=== PATIENT | male | born 1990 | race African-American/Black ===

== ENCOUNTER 2018-01-27 13:24 | Emergency (ER) | payer SELFPAY ==
[2018-01-27] MEDS ORDERED: Ondansetron HCl/PF 4 MG/2 ML Vial ONE (14:07)
[2018-01-27 14:38] LABS: #Lymphocytes 0.9 thou/uL (1.20-3.40); #Monocytes 0.3 thou/uL (0.11-0.59); #Neutrophils 5.6 thou/uL (1.40-6.50); %Basophils 0.6 % (0.0-1.0); %Monocytes 3.6 % (0.0-10.0); %Neutrophils 82.8 % (42.0-75.0); Hemoglobin 14.1 g/dL (14.0-18.0); Mean Corpuscular Hemoglobin 26.9 pg (27.0-31.0); Mean Corpuscular Volume 81.4 fL (78.0-98.0); Mean Platelet Volume 7.9 fL (7.4-10.4); Platelet Count 185 thou/uL (130-400); RBC Distribution Width 11.8 % (11.5-14.5); Red Blood Cell (RBC) Count 5.24 mill/uL (4.70-6.10); White Blood Cell (WBC) Count 6.8 thou/uL (4.8-10.8)
[2018-01-27 14:48] LABS: ALT (SGPT) 19 U/L (8-55); AST (SGOT) 26 U/L (5-34); Alkaline Phosphatase 65 U/L (40-150); Anion Gap 10 mmol/L (10-20); BUN (Urea Nitrogen) 9 mg/dL (8.9-20.6); Bilirubin, Total 0.7 mg/dL (0.2-1.2); Calc. Creatinine Clearance 0 mL/min (70-130); Calcium 8.5 mg/dL (7.8-10.44); Carbon Dioxide 27 mmol/L (22-29); Chloride 108 mmol/L (98-107); Estimated GFR-MDRD Greater than 90; Globulin 3.1 g/dL (2.4-3.5); Glucose 98 mg/dL (70-105); Lipase 35 U/L (8-78); Potassium 3.9 mmol/L (3.5-5.1); Protein, Total 7.1 g/dL (6.0-8.3); Sodium 141 mmol/L (136-145)
[2018-01-27 15:10] LABS: Bilirubin Negative (Negative); Blood, Urine Negative (Negative); Clarity Cloudy (Clear); Glucose, Urine (Dipstick) Negative (Negative); Leukocyte Negative (Negative); Nitrite Negative (Negative); Protein, Urine (Dipstick) 30 mg/dL (Neg-Trace); Specific Gravity, Urine 1.015 (1.005-1.030); Urobilinogen 0.2 mg/dL (0.2-1.0); pH, Urine 8.5 (5.0-9.0)
[2018-01-27 15:15] LABS: Crystals/HPF 4+ AMORPH PHOS HPF (Negative); RBC/HPF 0-3 HPF (0-3); Squamous Epithelial 0-3 HPF (0-3); WBC/HPF 0-3 HPF (0-3)
== END 2018-01-27 16:19 | disposition home or self-care (01) ==
LOC: SCSER 13:24
DX: R11.2 Nausea with vomiting, unspecified (principal)
CPT/HCPCS: 80053; 81003; 81015; 83690; 85025; 96361; 96374; J2405

== ENCOUNTER 2018-04-07 15:34 | Emergency (ER) | payer SELFPAY | END 2018-04-07 15:42 | LOC: ERS 15:34 | DX: Z02.89 Encounter for other administrative examinations (principal) | CPT/HCPCS: 99283 ==

== ENCOUNTER 2019-02-17 10:35 | Emergency (ER) | payer SELFPAY ==
[2019-02-17] MEDS ORDERED: Acetaminophen 500 MG TAB ONE (11:07)
--- NOTE | 2019-02-17 11:56 | RAD ---
EXAM: XR Thoracic Spine 3 V STANDARD PROVIDED CLINICAL HISTORY: Pain status post injury COMPARISON: 10/19/2003 FINDINGS: Thoracic alignment appears normal. Vertebral body heights appear preserved. Pedicles appear intact. IMPRESSION: No radiographic evidence for an acute osseous abnormality.
--- NOTE | 2019-02-17 11:57 | RAD ---
EXAM: XR Cerv Sp Ap Lat STANDARD PROVIDED CLINICAL HISTORY: Pain status post injury COMPARISON: 10/19/2003 FINDINGS: The odontoid is not well visualized. Given this limitation, there is no evidence for fracture. Cervic al alignment appears normal. Vertebral body heights appear preserved. No prevertebral soft tissue swelling apparent. Visualized lung apices appear clear. IMPRESSION: No evidence for fracture or traumatic subluxation with limitations as described.
== END 2019-02-17 12:10 | disposition home or self-care (01) ==
LOC: SCSER 10:35
DX: M54.2 Cervicalgia (principal); F17.210 Nicotine dependence, cigarettes, uncomplicated; V89.2XXA Person injured in unspecified motor-vehicle accident, traffic, initial encounter
CPT/HCPCS: 72040; 72072

== ENCOUNTER 2019-03-07 16:22 | Emergency (ER) | payer SELFPAY ==
--- NOTE | 2019-03-07 17:17 | ULT ---
US Testicular W Doppler History: Testicular pain Comparison: None. Findings: Real-time grayscale, color, and spectral analysis of the testicles was performed. Blood flow is adequate to both testicles. No hydrocele. No mass. Mild increased flow and edema of the right epididymal body. Impression: Findings suggestive of right epididymitis.
[2019-03-07] MEDS ORDERED: Lidocaine 1% MPF 2 ML VIAL ONE (17:56)
[2019-03-07] MEDS ORDERED: Azithromycin 250 MG TAB ONE (17:56)
[2019-03-07] MEDS ORDERED: cefTRIAXone\\ROCEPHIN 250 MG VIAL ONE (17:56)
[2019-03-07 18:01] LABS: Bilirubin Negative (Negative); Blood, Urine Small (Negative); Clarity Hazy (Clear); Glucose, Urine (Dipstick) Negative (Negative); Leukocyte Trace (Negative); Nitrite Negative (Negative); Protein, Urine (Dipstick) Negative (Neg-Trace); Urobilinogen 0.2 mg/dL (Less than 2)
[2019-03-07 18:07] LABS: Bacteria/HPF Rare-Few HPF (None Seen); Squamous Epithelial None Seen HPF (0-3); WBC/HPF 0-3 HPF (0-3)
[2019-03-08 22:53] LABS: Chlam.trachomatis by PCR,Urine Not Detected (NotDetected)
== END 2019-03-07 18:47 | disposition home or self-care (01) ==
LOC: SCSER 16:22
DX: N45.1 Epididymitis (principal); F17.210 Nicotine dependence, cigarettes, uncomplicated
CPT/HCPCS: 76870; 81003; 81015; 87491; 87591; 93976; 96372; J0696; J2001

== ENCOUNTER 2022-08-31 14:16 | Inpatient (IN) | payer OTHER, SELFPAY ==
[2022-08-31] MEDS ORDERED: fentaNYL 50 mcg/mL 1 mL Vial ONE (14:24)
[2022-08-31] MEDS ORDERED: Tranexamic Acid 1,000 MG/10 ML VIAL ONE (14:26)
[2022-08-31] MEDS ORDERED: Ketorolac Tromethamine 30 MG/ML VIAL ONE (14:38)
[2022-08-31 14:42] LABS: #Basophils 0.1 thou/uL (0.0-0.2); #Eosinphils 0.1 thou/uL (0.0-0.7); #Lymphocytes 2.9 thou/uL (1.20-3.40); #Monocytes 0.6 thou/uL (0.11-0.59); #Neutrophils 4.6 thou/uL (1.40-6.50); %Basophils 1.8 % (0.0-1.0); %Eosinophils 0.7 % (0.0-10.0); %Lymphocytes 34.6 % (21.0-51.0); %Monocytes 7.1 % (0.0-10.0); %Neutrophils 55.9 % (42.0-75.0); Mean Corpuscular HGB CONC 33.5 g/dL (32.0-36.0); Mean Corpuscular Hemoglobin 29.3 pg (27.0-31.0); Mean Corpuscular Volume 87.7 fl (78.0-98.0); Mean Platelet Volume 7.2 fL (7.4-10.4); Platelet Count 227 10x3/uL (130-400); RBC Distribution Width 12.2 % (11.5-14.5); Red Blood Cell (RBC) Count 4.75 mill/uL (4.70-6.10); White Blood Cell (WBC) Count 8.3 10x3/uL (4.8-10.8)
[2022-08-31 14:50] LABS: PTT 24.6 sec (22.9-36.1); Prothrombin Time 13.8 sec (12.0-14.7)
[2022-08-31 14:57] LABS: Bacteria/HPF None Seen HPF (None Seen); Bilirubin Negative (Negative); Blood, Urine 1+ (Negative); Clarity Turbid (Clear); Glucose, Urine (Dipstick) Normal (Negative); Ketone, Urine Negative (Negative); Leukocyte 25 Leu/uL (Negative); Nitrite Negative (Negative); Protein, Urine (Dipstick) 50 mg/dL (Neg-Trace); Specific Gravity, Urine 1.021 (1.002-1.036); Squamous Epithelial 0-3 HPF (0-3); Urobilinogen Normal mg/dL (Less than 2); WBC/HPF 0-3 HPF (0-3)
[2022-08-31 15:03] LABS: Amphetamine Not Detected (NotDetected); Barbiturates Screen Not Detected (NotDetected); Benzodiazepine Screen Not Detected (NotDetected); Cocaine Metabolite Screen Not Detected (NotDetected); Methadone Not Detected (NotDetected); Methamphetamine Not Detected (NotDetected); Opiate Screen Not Detected (NotDetected); Oxycodone Screen Not Detected (NotDetected); Phencyclidine (PCP) Not Detected (NotDetected); THC/Cannabinoid Screen Detected (NotDetected); Tricyclic Screen Not Detected (NotDetected)
[2022-08-31] MEDS ORDERED: Dextrose 50% Abboject 50 ML SYRINGE SLOW IVP PRN (15:03)
[2022-08-31] MEDS ORDERED: traMADol HCl 50 MG TAB PO PRN (15:03)
[2022-08-31] MEDS ORDERED: TETANUS, DIPHTHERIA TOX,ADULT (TDVAX) 0.5 ML VIAL IM ONE (15:03)
[2022-08-31] MEDS ORDERED: Dextrose 5% in Water 1,000 ML IV PRN (15:03)
[2022-08-31 15:11] LABS: ALT (SGPT) 12 U/L (8-55); AST (SGOT) 20 U/L (5-34); Alcohol Less than 10 mg/dL (Less than 10); Alkaline Phosphatase 57 U/L (40-110); Anion Gap 12 mmol/L (10-20); BUN (Urea Nitrogen) 11 mg/dL (8.9-20.6); Bilirubin, Total 0.6 mg/dL (0.2-1.2); Calc. Creatinine Clearance 0 mL/min (70-130); Calcium 8.7 mg/dL (7.8-10.44); Carbon Dioxide 26 mmol/L (22-29); Chloride 106 mmol/L (98-107); Estimated GFR 77; Globulin 2.8 g/dL (2.4-3.5); Glucose 93 mg/dL (70-105); Potassium 3.7 mmol/L (3.5-5.1); Protein, Total 6.8 g/dL (6.0-8.3); Sodium 140 mmol/L (136-145)
[2022-08-31] MEDS ORDERED: Sodium Chloride 0.9% 1,000 ML IV SCH (15:15)
[2022-08-31 16:35] VITALS: BMI 21.4
[2022-08-31] MEDS: Ketorolac Tromethamine 30 MG/ML VIAL IVP SCH ×2 (17:41→23:35)
[2022-08-31] MEDS: Acetaminophen 325 MG TAB PO SCH ×2 (17:41→23:29)
[2022-08-31] MEDS: traMADol HCl 50 MG TAB PO SCH ×2 (17:42→23:33)
[2022-08-31 17:49] LABS: Lactic Acid 1.7 mmol/L (0.5-2.2)
[2022-08-31] MEDS: Ipratropium/Albuterol 3 ML NEB NEB SCH (19:06)
[2022-08-31] MEDS: Gabapentin 300 MG CAP PO SCH (20:10)
[2022-08-31] MEDS: Senokot S 8.6-50 MG TAB PO SCH (20:12)
[2022-08-31] MEDS: Famotidine 20 MG TAB PO SCH (20:12)
[2022-09-01] MEDS: traMADol HCl 50 MG TAB PO SCH ×4 (05:21→23:21)
[2022-09-01] MEDS: Acetaminophen 325 MG TAB PO SCH ×3 (05:24→17:31)
[2022-09-01] MEDS: Ketorolac Tromethamine 30 MG/ML VIAL IVP SCH (05:28)
[2022-09-01 06:54] LABS: #Lymphocytes 1.9 thou/uL (1.20-3.40); #Monocytes 0.7 thou/uL (0.11-0.59); #Neutrophils 6.6 thou/uL (1.40-6.50); %Basophils 0.3 % (0.0-1.0); %Eosinophils 0.4 % (0.0-10.0); %Lymphocytes 20.7 % (21.0-51.0); %Monocytes 7.4 % (0.0-10.0); %Neutrophils 71.1 % (42.0-75.0); Hemoglobin 13.1 g/dL (14.0-18.0); Mean Corpuscular HGB CONC 31.3 g/dL (32.0-36.0); Mean Corpuscular Hemoglobin 27.7 pg (27.0-31.0); Mean Corpuscular Volume 88.7 fl (78.0-98.0); Mean Platelet Volume 6.9 fL (7.4-10.4); Platelet Count 223 10x3/uL (130-400); RBC Distribution Width 12.2 % (11.5-14.5); Red Blood Cell (RBC) Count 4.71 mill/uL (4.70-6.10); White Blood Cell (WBC) Count 9.3 10x3/uL (4.8-10.8)
[2022-09-01 07:13] LABS: Anion Gap 10 mmol/L (10-20); BUN (Urea Nitrogen) 10 mg/dL (8.9-20.6); Calc. Creatinine Clearance 90 mL/min (70-130); Calcium 8.6 mg/dL (7.8-10.44); Carbon Dioxide 25 mmol/L (22-29); Chloride 103 mmol/L (98-107); Estimated GFR 91; Glucose 98 mg/dL (70-105); Magnesium 1.8 mg/dL (1.6-2.6); Potassium 3.7 mmol/L (3.5-5.1); Sodium 134 mmol/L (136-145)
[2022-09-01] MEDS: Ipratropium/Albuterol 3 ML NEB NEB SCH ×3 (07:43→19:35)
[2022-09-01] MEDS ORDERED: Magnesium 2 GM/50 ML(in water) 2 GM in Premix Bag 1 BAG IVPB SCH (08:00)
[2022-09-01] MEDS: Gabapentin 300 MG CAP PO SCH ×3 (08:57→19:45)
[2022-09-01] MEDS: Senokot S 8.6-50 MG TAB PO SCH ×2 (08:57→19:45)
[2022-09-01] MEDS: Famotidine 20 MG TAB PO SCH ×2 (08:57→19:45)
[2022-09-01] MEDS: Polyethylene Glycol 3350 17 GM Packet PO SCH (08:57)
[2022-09-01] MEDS: Acetaminophen 500 MG TAB PO SCH ×2 (17:44→23:20)
[2022-09-02 05:55] LABS: #Eosinphils 0.1 thou/uL (0.0-0.7); #Lymphocytes 1.8 thou/uL (1.20-3.40); #Monocytes 0.4 thou/uL (0.11-0.59); %Basophils 0.3 % (0.0-1.0); %Eosinophils 1.2 % (0.0-10.0); %Lymphocytes 21.3 % (21.0-51.0); %Monocytes 4.7 % (0.0-10.0); %Neutrophils 72.5 % (42.0-75.0); Hemoglobin 13.2 g/dL (14.0-18.0); Mean Corpuscular HGB CONC 33.1 g/dL (32.0-36.0); Mean Corpuscular Hemoglobin 29.1 pg (27.0-31.0); Mean Corpuscular Volume 87.9 fl (78.0-98.0); Mean Platelet Volume 7.2 fL (7.4-10.4); Platelet Count 201 10x3/uL (130-400); Red Blood Cell (RBC) Count 4.55 mill/uL (4.70-6.10); White Blood Cell (WBC) Count 8.2 10x3/uL (4.8-10.8)
[2022-09-02] MEDS: traMADol HCl 50 MG TAB PO SCH ×4 (06:08→23:59)
[2022-09-02] MEDS: Acetaminophen 500 MG TAB PO SCH ×4 (06:08→23:59)
[2022-09-02 06:21] LABS: Anion Gap 12 mmol/L (10-20); BUN (Urea Nitrogen) 10 mg/dL (8.9-20.6); Calc. Creatinine Clearance 95 mL/min (70-130); Calcium 8.7 mg/dL (7.8-10.44); Carbon Dioxide 25 mmol/L (22-29); Chloride 104 mmol/L (98-107); Estimated GFR 97; Glucose 94 mg/dL (70-105); Magnesium 1.9 mg/dL (1.6-2.6); Phosphorus 3.6 mg/dL (2.3-4.7); Potassium 3.9 mmol/L (3.5-5.1); Sodium 137 mmol/L (136-145)
[2022-09-02] MEDS: Ipratropium/Albuterol 3 ML NEB NEB SCH ×3 (07:15→19:39)
[2022-09-02] MEDS: Ondansetron PF 4 MG/2 ML Vial IVP PRN ×2 (07:50→23:59)
[2022-09-02] MEDS: Famotidine 20 MG TAB PO SCH ×2 (08:56→20:34)
[2022-09-02] MEDS: Polyethylene Glycol 3350 17 GM Packet PO SCH (08:56)
[2022-09-02] MEDS: Senokot S 8.6-50 MG TAB PO SCH ×2 (08:56→20:34)
[2022-09-02] MEDS: Gabapentin 300 MG CAP PO SCH ×3 (08:56→20:34)
[2022-09-03] MEDS: traMADol HCl 50 MG TAB PO SCH ×4 (06:36→23:44)
[2022-09-03] MEDS: Acetaminophen 500 MG TAB PO SCH ×4 (06:36→23:42)
[2022-09-03] MEDS: Ipratropium/Albuterol 3 ML NEB NEB SCH ×2 (07:02→15:08)
[2022-09-03] MEDS: Polyethylene Glycol 3350 17 GM Packet PO SCH (08:02)
[2022-09-03] MEDS: Senokot S 8.6-50 MG TAB PO SCH ×2 (08:03→21:25)
[2022-09-03] MEDS: Gabapentin 300 MG CAP PO SCH ×3 (08:03→21:16)
[2022-09-03] MEDS: Famotidine 20 MG TAB PO SCH ×2 (08:03→21:16)
[2022-09-03] MEDS ORDERED: Lidocaine 1% (PF) 30 ML VIAL SC SCH (08:45)
[2022-09-03] MEDS ORDERED: Ketorolac Tromethamine 30 MG/ML VIAL IVP SCH (09:45)
[2022-09-03] MEDS ORDERED: Morphine 4 MG/ML VIAL SLOW IVP SCH (10:45)
[2022-09-03] MEDS: Albuterol 200 PUFF (6.7GM INHALER) INH SCH (19:48)
[2022-09-03] MEDS: Ipratropium 200 Puff Oral Inhaler INH SCH (19:49)
[2022-09-03] MEDS: Cyclobenzaprine 10 MG TAB PO PRN (23:42)
[2022-09-04] MEDS: Acetaminophen 500 MG TAB PO SCH ×3 (05:48→17:22)
[2022-09-04] MEDS: traMADol HCl 50 MG TAB PO SCH ×3 (05:49→17:23)
[2022-09-04] MEDS: Ipratropium 200 Puff Oral Inhaler INH SCH ×3 (07:12→19:05)
[2022-09-04] MEDS: Albuterol 200 PUFF (6.7GM INHALER) INH SCH ×3 (07:14→19:05)
[2022-09-04] MEDS: Polyethylene Glycol 3350 17 GM Packet PO SCH (09:50)
[2022-09-04] MEDS: Senokot S 8.6-50 MG TAB PO SCH ×2 (09:50→20:48)
[2022-09-04] MEDS: Famotidine 20 MG TAB PO SCH ×2 (09:50→20:46)
[2022-09-04] MEDS: Gabapentin 300 MG CAP PO SCH ×3 (09:50→20:47)
[2022-09-05] MEDS: traMADol HCl 50 MG TAB PO SCH ×4 (00:04→18:39)
[2022-09-05] MEDS: Acetaminophen 500 MG TAB PO SCH ×4 (00:05→18:39)
[2022-09-05] MEDS: Albuterol 200 PUFF (6.7GM INHALER) INH SCH ×3 (08:25→20:45)
[2022-09-05] MEDS: Ipratropium 200 Puff Oral Inhaler INH SCH ×3 (08:26→20:45)
[2022-09-05] MEDS: Famotidine 20 MG TAB PO SCH ×2 (10:05→20:28)
[2022-09-05] MEDS: Senokot S 8.6-50 MG TAB PO SCH ×2 (10:05→20:29)
[2022-09-05] MEDS: Gabapentin 300 MG CAP PO SCH ×3 (10:06→20:29)
[2022-09-05] MEDS: Polyethylene Glycol 3350 17 GM Packet PO SCH (10:06)
[2022-09-05] MEDS: Cyclobenzaprine 10 MG TAB PO PRN (20:29)
[2022-09-06] MEDS: traMADol HCl 50 MG TAB PO SCH ×5 (00:22→23:56)
[2022-09-06] MEDS: Acetaminophen 500 MG TAB PO SCH ×5 (00:22→23:55)
[2022-09-06] MEDS: Albuterol 200 PUFF (6.7GM INHALER) INH SCH ×3 (07:08→19:06)
[2022-09-06] MEDS: Ipratropium 200 Puff Oral Inhaler INH SCH ×3 (07:09→19:06)
[2022-09-06] MEDS: Polyethylene Glycol 3350 17 GM Packet PO SCH (08:43)
[2022-09-06] MEDS: Gabapentin 300 MG CAP PO SCH ×3 (08:43→21:10)
[2022-09-06] MEDS: Senokot S 8.6-50 MG TAB PO SCH ×2 (08:43→21:09)
[2022-09-06] MEDS: Famotidine 20 MG TAB PO SCH ×2 (08:43→21:10)
[2022-09-07] MEDS: Ibuprofen 200 MG TAB PO PRN ×2 (04:00→20:01)
[2022-09-07] MEDS: Acetaminophen 500 MG TAB PO SCH ×3 (06:07→17:10)
[2022-09-07] MEDS: traMADol HCl 50 MG TAB PO SCH ×3 (06:07→17:10)
[2022-09-07] MEDS: Ipratropium 200 Puff Oral Inhaler INH SCH (07:16)
[2022-09-07] MEDS: Albuterol 200 PUFF (6.7GM INHALER) INH SCH ×4 (07:16→19:17)
[2022-09-07] MEDS: Senokot S 8.6-50 MG TAB PO SCH ×2 (07:58→20:01)
[2022-09-07] MEDS: Polyethylene Glycol 3350 17 GM Packet PO SCH (07:58)
[2022-09-07] MEDS: Famotidine 20 MG TAB PO SCH (07:59)
[2022-09-07] MEDS: Gabapentin 300 MG CAP PO SCH ×3 (07:59→20:00)
[2022-09-08] MEDS: traMADol HCl 50 MG TAB PO SCH ×3 (00:54→11:03)
[2022-09-08] MEDS: Acetaminophen 500 MG TAB PO SCH ×3 (01:00→11:03)
[2022-09-08] MEDS: Senokot S 8.6-50 MG TAB PO SCH (08:18)
[2022-09-08] MEDS: Gabapentin 300 MG CAP PO SCH (08:19)
[2022-09-08] MEDS: Polyethylene Glycol 3350 17 GM Packet PO SCH (08:20)
[2022-09-08 11:35] VITALS: BP 138/86; TEMP 97.4
== END 2022-09-08 15:11 | disposition home or self-care (01) | DRG 200 ==
LOC: ERS 14:16 → EEVIPCON 15:03 → CCU 15:03 → SURG B 09-01 15:14
PROVIDERS: ADMIT Surgery; ATTEND Surgery
PROC: 0W9930Z Drainage of Right Pleural Cavity with Drainage Device, Percutaneous Approach (ICD-10-PCS; principal; 2022-08-31)
DX: S27.2XXA Traumatic hemopneumothorax, initial encounter (principal); J93.9 Pneumothorax, unspecified; S22.41XA Multiple fractures of ribs, right side, initial encounter for closed fracture; S27.321A Contusion of lung, unilateral, initial encounter; S21.131A Puncture wound without foreign body of right front wall of thorax without penetration into thoracic cavity, initial encounter; T79.7XXA Traumatic subcutaneous emphysema, initial encounter; S11.93XA Puncture wound without foreign body of unspecified part of neck, initial encounter; W34.00XA Accidental discharge from unspecified firearms or gun, initial encounter; Y92.89 Other specified places as the place of occurrence of the external cause
CPT/HCPCS: 36415; 36416; 70498; 71045; 71260; 80048; 80053; 80306; 80307; 81003; 81015; 83605; 83735; 84100; 85025; 85610; 85730; 86850; 86900; 86901; 94640; 96365; 96374; 96375; G0390; J1650; J1885; J2001; J2270; J2405; J3010; J3475; J7050; J7620

== ENCOUNTER 2022-09-13 10:07 | Outpatient (CLI) | payer BC | END 2022-09-13 10:08 | disposition home or self-care (01) | LOC: BICRAD 10:07 | PROVIDERS: ATTEND Student in an Organized Health Care Education/Training Program | DX: J95.811 Postprocedural pneumothorax (principal) | CPT/HCPCS: 71046 ==